=== PATIENT | male | born 1955 | race Caucasian/White ===

== ENCOUNTER → 2023-03-27 09:21 | Outpatient (REF) | payer OTHER, SELFPAY | LOC: RAD 09:21 | PROVIDERS: ATTENDING PHYSICIAN Podiatrist Foot Surgery; FAMILY PHYSICIAN Nurse Practitioner Primary Care | DX: L97.522 Non-pressure chronic ulcer of other part of left foot with fat layer exposed (principal) | CPT/HCPCS: 78315; A9503 ==

== ENCOUNTER → 2023-03-29 07:19 | Outpatient (REF) | payer OTHER, SELFPAY | LOC: RAD 07:19 | PROVIDERS: ATTENDING PHYSICIAN Podiatrist Foot Surgery; FAMILY PHYSICIAN Nurse Practitioner Primary Care | DX: M86.9 Osteomyelitis, unspecified (principal) | CPT/HCPCS: 78803; A9569 ==

== ENCOUNTER → 2023-05-10 08:50 | Outpatient (REF) | payer OTHER, SELFPAY | LOC: RAD 08:50 | PROVIDERS: ATTENDING PHYSICIAN Nurse Practitioner Primary Care | DX: N18.2 Chronic kidney disease, stage 2 (mild) (principal); R80.9 Proteinuria, unspecified; C61 Malignant neoplasm of prostate | CPT/HCPCS: 76770 ==

== ENCOUNTER → 2023-05-14 12:23 | Outpatient (REF) | payer OTHER, SELFPAY | LOC: RAD 12:23 | PROVIDERS: ATTENDING PHYSICIAN Surgery Vascular Surgery; FAMILY PHYSICIAN Nurse Practitioner Primary Care | DX: I73.9 Peripheral vascular disease, unspecified (principal) | CPT/HCPCS: 93922; 93925 ==

== ENCOUNTER 2023-05-21 12:19 | Inpatient (IN) | payer OTHER, SELFPAY ==
[2023-05-21] VITALS (9 sets, daily range): BP systolic 124–189; BP diastolic 59–96; BMI 45.6; BMI 45.7
--- NOTE | 2023-05-21 10:10 | ED.GENMED ---
History of Present Illness
General
Chief Complaint: Skin Problem
Source: patient
Time Seen by Provider: 05/21/23 09:49
Travel History
Have you had any contact with someone who has COVID-19?: No
Do you have any symptoms of coronavirus? Fever > 100 degrees, chills, cough, shortness of breath, sore throat, loss of taste or smell, muscle aches, or headache?: No
History of Present Illness
History of Present Illness:
This patient is a 67-year-old male presents emergency department with complaints of nonhealing left second toe wound. He was referred here by his quality nurse, Dr. Winston Caba, and is scheduled for surgery later today. Patient states that he is
currently taking oral antibiotics, Augmentin, and his quality nurse was concerned that he is not improving. Patient does not appreciate pain. He denies fever, chills, chest pain, dyspnea, abdominal pain, or other complaints.
Past History
Past History
ED Past Medical History: HTN, Hypercholesterolemia, Psychiatric (Anxiety Depression, ), Other (Herniated disc) and Other (depression Hearing impaired on the left, history of arthritis, fractures, and gout ,chronic bronchitis)
ED Past Surgical History: Orthopedic (Left 2 and 3 finger reattached Right ankle tendon repair, Left wrist repair, left great toe amputation), Tonsilectomy and Other (Patient has had surgery for the left second and third fingers reattachment, and
right ankle tendon repair)
Social History
Tobacco: Former smoker
Alcohol: None
Drug: None
Personal:
Living: alone
Employment: Employed
Family History
Family History: Hypertension; Negative Diabetes
Phy Exam
Physical Exam
Physical Exam:
GENERAL: Alert , in no apparent distress
EYE: pupils equal and reactive
NECK: Supple, no significant adenopathy.
ENT: o/p clr, mmm.
CARDIAC: Regular rate and rhythm .
LUNGS: Clear breath sounds bilaterally, no acute respiratory distress, no wheezes/rales/rhonchi
ABDOMEN: Soft, without focal tenderness, no r/g, no cvat
NEUROLOGICAL: Alert and oriented, no focal neuro deficits
SKIN: Warm and dry, skin intact.
MUSCULOSKELETAL: s/p great toe amputation L foot, 2nd toe with open wound just prox to nailbed centrally, sl foul smelling, no active drainage. Mild surrounding erythema, no crepitus/fluctuance. warm
PSYCH: Normal and appropriate interaction.
Course
Orders/Labs/Results
Orders:
Orders
05/21/23 10:04
Cardiac Monitoring- Treatment ONCE
Foot, Left 3 View [CR Foot - Left Min 3 Views] Urgent
Comment:
Reason For Exam: 2nd toe infection
05/21/23 10:12
Complete Blood Count/With Diff Urgent
Comprehensive Metabolic Panel Urgent
Lactic Acid Q4H
Comment: CANCEL 2nd LACTIC ACID IF 1st LACTIC ACID IS LESS THAN 2
TSH Reflex To Free T4 Urgent
Comment: TSH REFLEX ADDED ON BY FLOOR 11;54AM 05-21-23
Blood Culture Q30M
KELLY Source: Blood/Venous
Specimen Description:
Blood Culture Q30M
KELLY Source: Blood/Venous
Specimen Description:
05/21/23 10:17
Piperacillin/Tazo 4.5 Gram [Zosyn] 4.5 gram in 100 ml IV NOW
Vancomycin 1 Gram/200 ml [Vancocin] 1 gram in 200 ml IV NOW
05/21/23 11:50
Admit/Transfer Patient As Directed
Co-Sign Provider:
Level of Care: Inpatient admission
Assign to:: Telemetry
Physician / Group: Marisol Venegas
Diagnosis: L 2nd toe infection/wound/osteomyelitis
Reason for Telemetry: Arrhythmia
Other Reason for Telemetry: bradycardia on monitor
Date to Stop Telemetry: 05/24/23
Time to Stop Telemetry: 11:00
Reason for Hospitalization: L 2nd toe infection/wound/osteomyelitis- IV abx and surgery
Expected length of stay greater than two midnights?: Yes
ELOS- Estimated Length of Stay in days: 3
I certify the patient meets the requirements for IP care: Yes
05/21/23 11:54
Code Status As Directed
Resuscitation Status: Full Code
05/21/23 11:54
Add On- LAB Routine
Tests Added?: TSH reflex T4
EKG [Electrocardiogram (*1)] Urgent
Reason for Study: PreOp
05/21/23 12:00
INFECTIOUS DISEASE CONSULT Routine
Consulting Provider: Kevin Euceda
Was physician already notified: Yes
PODIATRY CONSULT Routine
Consulting Provider: Winston Caba
Was physician already notified: Yes
05/21/23 12:23
Type+Screen Routine
Troponin I Routine
05/21/23 13:02
0.9% Sodium Chloride 1000 ml [Nss] 1,000 ml IV 70 mls/hr
Acetaminophen [Tylenol] 650 mg PO Q4HPRN PRN
Morphine Sulfate 2 mg IV Q4HPRN PRN
Ondansetron Injectable [Zofran] 4 mg IV Q6HPRN PRN
Oxycodone [Roxicodone] 5 mg PO Q4HPRN PRN
05/21/23 13:02
WOUND/OSTOMY CONSULT Routine
Reason for Consult: Left 2nd toe wound, cellulitis
Activity As Directed
Activity Level: As Tolerated
Sequential Compression Device [Pneumatic Compression Sleeves] As Directed
Type: Knee high
Vital Signs As Directed
Frequency: Per unit guidelines
DX Deep Vein Thrombosis Video Routine
05/22/23 08:00
Allopurinol [Zyloprim] 300 mg PO DAILY
Finasteride [Proscar] 5 mg PO DAILY
Lisinopril [Zestril] 20 mg PO DAILY
Pravastatin Sodium [Pravachol] 80 mg PO DAILY
05/24/23 11:00
DC Protocol for Telemetry ONCE
Abnormal Lab Results
05/21/23
10:12
RBC 4.54 L 10^6/uL
(4.70-6.10)
MCHC 32.6 L g/dL
(33.0-37.0)
RDW 14.6 H %
(11.5-14.5)
Absolute Monos (auto) 0.7 H 10^3/uL
(0.1-0.6)
BUN 33 H mg/dl
(9-20)
05/21/23 10:12
05/21/23 10:12
Vital Signs
Initial and Last Documented VS:
Initial Vital Signs
Temp Pulse Resp BP Pulse Ox
97.7 F 54 18 189/86 99
05/21/23 09:43 05/21/23 09:43 05/21/23 09:43 05/21/23 09:43 05/21/23 09:43
Last Documented Vital Signs
Temp Pulse Resp BP Pulse Ox
97.4 F 49 20 150/82 99
05/21/23 18:00 05/21/23 18:00 05/21/23 18:00 05/21/23 18:00 05/21/23 18:00
*Critical Care Note
Total Time (30-74mins, 75-104mins- exclusive of procedures): Not Applicable
Update Note
Update Note:
Patient presents to the Emergency Department with toe wound
Number and Complexity of Problems Addressed at the Encounter
� Chronic conditions affecting care:
� Acute Exacerbation and/or Progression of Chronic Illness:
� Differential Diagnosis includes: But not limited to necrotic wound, gangrene, abscess, osteomyelitis, etc.
Amount and/or Complexity of Data to be Reviewed and Analyzed
� I performed an independent evaluation of and my interpretation is:
EKG:read by me, sinus montserrat, no acute ischemia
CT:
Xrays:Prior amputation of the phalanges of the left great toe with likely chronic deformity of the head of the first metatarsal.
Some mild cortical irregularity about the left second metatarsal phalangeal joint which although may be chronic, cannot exclude minor bony destructive process, particularly involving the base of the proximal phalanx, such as osteomyelitis.
Mild deformity of the head of the third metatarsal with some periosteal thickening, possibly chronic.
Laboratory Studies:generally unremarkable
Other:
� Review of other/old records reveals: Patient was seen in the hospital for wounds in the past, extensive wound care history with center
� Clinical information was obtained by an independent historian: Patient called into emergency department by his quality nurse :, Text attached Laura Knight. Called in by podiatry (Dr.Daniel Caba). Admit to hospitalist service.
dehisced toe wound/down to bone...scheduled for amp today at 4...
needs xray, abx and to be medically cleared for surgery
� Prescriptions/Medications Considered but not given:
� Further testing considered but not performed:
Risk of Complications and/or Morbidity or Mortality of Patient Management
� Social determinants of health affecting care:
� Discussion with other providers (PCP, Hospitalists, Consultants, etc): [place] text sent to on-call hospitalist, Dr. Finch, for admission. I will update : The patient is here.
� Escalation of care including admission/observation vs risk of discharge considered: Dr caba aware pt here, requests zosyn for abx (I therefore cancelled vanco as well). Pt stable, not septic.
ED Attending Note
-
Portions of this chart may have been created with voice recognition software.� Occasional wrong word or��sound alike� substitutions may have occurred due to the inherent limitations of voice recognition software.
Discharge Plan
Departure
Patient Disposition: Admit
Date of Disposition: 05/21/23
Time of Disposition: 10:30
Admit to: Med/Surg
Presentation/result/management discussed w/ accepting MD/DO: Hospitalist
Condition: Fair
Discharge Problem:
Infection of toe
Interventions
Interventions:
*Risk Screen - Suicide Last Done: 05/21/23 10:11
*General Assessment Last Done: 05/21/23 10:11
*Neglect/Abuse Screening Last Done: 05/21/23 10:11
*ED COVID-19 Vaccine History Last Done: 05/21/23 09:45
*Nursing Disposition Last Done: 05/21/23 12:55
ED-Skin Assessment Last Done: 05/21/23 10:26
Discharge Date and Time
Discharge Date/Time: 05/21/23 12:56
[2023-05-21 10:33] LABS: % Basophils 0.4 % (0-2); % Eosinophils 3.8 % (0-6); % Immature Granulocytes 0.4 % (0-0.5); % Lymphocytes 27.1 % (20.5-51.1); % Monocytes 8.6 % (1.7-9.3); % Neutrophils 59.7 % (42.2-75.2); Absolute Eosinophils 0.3 10^3/uL (0-0.7); Absolute Lymphocytes 2.1 10^3/uL (1.2-3.4); Absolute Monocytes 0.7 10^3/uL (0.1-0.6); Absolute Neutrophils 4.7 10^3/uL (1.4-6.5); Hematocrit 41.7 % (39.0-52.0); Hemoglobin 13.6 g/dL (13.0-18.0); Mean Corp Hgb Conc. 32.6 g/dL (33.0-37.0); Mean Corpuscular Volume 91.9 fL (80.0-94.0); Mean Platelet Volume 10.2 fL (7.4-10.4); Nucleated Red Blood Cells % 0 % (-); Platelet Count 221 10^3/uL (130-400); Red Blood Cell Count 4.54 10^6/uL (4.70-6.10); Red Cell Dist. Width 14.6 % (11.5-14.5); White Blood Cell Count 7.9 10^3/uL (4.8-10.8)
[2023-05-21] MEDS: ZOSYN 100 IV (10:35)
[2023-05-21 10:45] LABS: ALT (SGPT) 19 U/L (0-50); AST (SGOT) 25 U/L (17-59); Albumin 4.2 g/dl (3.5-5.0); Alkaline Phosphatase 57 U/L (38-126); Blood Urea Nitrogen 33 mg/dl (9-20); Calcium 9.7 mg/dl (8.4-10.2); Carbon Dioxide 27 mmol/L (22-30); Chloride 106 mmol/L (98-107); Estimated Creatinine Clearance 95 ml/min; Glucose 99 mg/dl (70-99); Potassium 4.8 mmol/L (3.5-5.1); Sodium 138 mmol/L (135-145); Total Bilirubin 0.4 mg/dl (0.2-1.3); Total Protein 7.1 g/dl (6.3-8.2); eGFR > 60.00
[2023-05-21 10:48] LABS: Lactic Acid 0.8 mmol/L (0.7-2.0)
--- NOTE | 2023-05-21 11:36 | HPS.HSE ---
Family Physician
-
Family Physician: Marielos Hogue
Chief Complaint
-
nonhealing 2nd L toe wound
History of Present Illness
67 y/o M hx of HTN, HLD, Anxiety/depression, presents from podiatry office (Dr. Madan Caba) for direct admission for nonhealing L 2nd toe wound. Patient reports being on Augmentin for a few days for cellulitis without improvement. Now noticing more
redness and drainage. No fever/chills, no SOB, CP, no edema, no GI complaints.
In ER, Xray suggestive of osteo, patient admitted with surgery planned this afternoon.
Medical History
Past Medical History
Past Medical History: Reports Other (HTN, HLD, Anxiety/depression,)
Past Surgical History: Reports Tonsilectomy and Other (L great toe amp)
Social History
Tobacco: Former Smoker
Alcohol: None
Drug: None
Personal:
Living: Alone
Employment: Employed
Family History
Family History: Not pertinent
Allergies / Home Medications
Allergies reflects when Allergies were last updated in [place] [place].
Home Medications with original date entered in [place]
Allergy/Medication List:
Allergies
Allergy/AdvReac Type Severity Reaction Status Date / Time
zinc [Zinc] Allergy Rash-topical Verified 05/21/23 09:47
zinc
Home Medications
cholecalciferol (vitamin D3) 50 mcg (2,000 unit) tablet 2,000 units PO DAILY Supplement 06/21/21
finasteride 5 mg tablet 5 mg PO DAILY prostate issue 06/21/21
pravastatin 40 mg tablet 80 mg PO DAILY High cholesterol 06/21/21
allopurinol 300 mg tablet 300 mg PO DAILY 05/11/22
lisinopril 20 mg tablet 20 mg PO DAILY 05/11/22
amoxicillin 875 mg-potassium clavulanate 125 mg tablet 1 tab PO BID 05/21/23
coQ10 (ubiquinol) 100 mg capsule 100 mg PO DAILY 05/21/23
polyethylene glycol 3350 17 gram oral powder packet (Miralax) 17 g PO DAILYPRN PRN constipation 05/21/23
Review of Systems
-
History Source: Patient
A 12 point ROS was completed and negative except as noted: Yes
Physical Exam
Vital Signs
Vital Signs
Temp Pulse Resp BP Pulse Ox
97.7 F 54 14 150/77 100
05/21/23 09:43 05/21/23 10:38 05/21/23 10:38 05/21/23 10:38 05/21/23 10:38
Physical Exam
General: Well Developed and Well Nourished
HEENT: NormoCephalic and Anicteric
Respiratory: Clear; No Wheezes or Rales
Cardiac: S1/S2 and Bradycardia
GI: Soft and Non Tender
Musculoskeletal: Other (L 2nd toe wound, with surrounding cellulitis, drainage)
Neuro: AO x 3
Psych: Calm
Laboratory Results
-
05/21/23 10:12
05/21/23 10:12
Laboratory Results
Lactic Acid 0.8 mmol/L (0.7-2.0) 05/21/23 10:12
Total Bilirubin 0.4 mg/dl (0.2-1.3) 05/21/23 10:12
AST 25 U/L (17-59) 05/21/23 10:12
ALT 19 U/L (0-50) 05/21/23 10:12
Alkaline Phosphatase 57 U/L (38-126) 05/21/23 10:12
Data Reviewed
-
Lab Data: Labs Reviewed by me
Impression/Plan
-
Assessment:
Left 2nd toe infection with POA wound
- x-ray: Prior amputation of the phalanges of the left great toe with likely chronic deformity of the head of the first metatarsal. Some mild cortical irregularity about the left second metatarsal phalangeal joint which although may be chronic,
cannot exclude minor bony destructive process, particularly involving the base of the proximal phalanx, such as osteomyelitis. Mild deformity of the head of the third metatarsal with some periosteal thickening, possibly chronic.
- empiric Abx given in ER, hold further for now to allow operative cultures
- ID consulted
- Podiatry consulted
- pre-op EKG with sinus montserrat, no ischemic changes. Can proceed to OR with low to mod risk, no additional testing required.
Sinus bradycardia, patient was asleep prior to encounter
- asymptomatic
- tele
- avoid AV ella blocking agents
- EKG sinus montserrat
- trop neg
- TSH 1.14
Essential HTN
- resume KEREN tomorrow
Enlarged prostate - Finasteride
Gout hx - continue Allopurinol
HLD - statin
Anxiety/Depression
DVT ppx: SCDs pre-op
Code: Full
[2023-05-21 12:55] LABS: Troponin I < 0.012 ng/ml
[2023-05-21 13:06] LABS: TSH Reflex To Free T4 1.14 uIU/ml (0.47-4.68)
[2023-05-21] MEDS: NSS 1000 IV (13:09)
--- NOTE | 2023-05-21 13:58 | CON.ID ---
Consultation
-
Date/Time Consultation Requested: 05/21/2023 1200
Date/Time Consultation Performed: 05/21/2023 1336
Requesting Provider: Dr. Venegas
Performing Provider: Dr. Euceda
Reason for Consultation: Left second toe infection
Chief Complaint / Past History
History of Present Illness
Yang Knight is a 67-year-old man being evaluated at the request of Dr. Venegas regarding left second toe infection. History is obtained from chart review, along with patient interview.
The patient denies any significant past medical history of lower extremity neuropathy, and previous amputation of the left hallux. (2021). He notes that he had difficulty healing at that time, although ultimately the area did heal. Since that
point he has been dealing with a second toe hammertoe deformity and he reports that he underwent surgery approximately 3 weeks ago. Following that he has had a difficult time healing the area and has been followed closely by Podiatry. In follow-up
this week the area remains open despite several days of antibiotic therapy, and the patient has been sent in by Podiatry for exploration in the OR, and possible distal phalanx amputation.
At this time the patient denies any erythema extending up the leg. He denies any fevers or chills. He denies significant drainage from the area.
Past History
Additional Past Medical History:
HTN
Dyslipidemia
Gout
Depression
Hx prostate cancer
Additional Past Surgical History:
Tonsils
Left second and third finger surgery (reattachment)
Right ankle tendon surgery
Left hallux amp
Wrist surgery
Allergy History:
zinc [Zinc] Allergy (Verified 05/21/23 09:47)
Rash-topical zinc
Medications Reviewed: Yes
Current Antibiotics:
None
Social History
Tobacco: Non-Smoker
Alcohol: None
Drug: None
Personal: Single
Living: With Family
Employment: Retired
Review of Systems
Vital Signs
Temp Pulse Resp BP Pulse Ox
98.3 F 52 18 164/85 98
05/21/23 13:02 05/21/23 13:02 05/21/23 13:02 05/21/23 13:02 05/21/23 13:02
Physical Exam
Physical Exam
Constitutional: No Acute Distress, Comfortable and Non-toxic
Head: Normocephalic
Eyes: Pupils Equal, Pupils Round, No Conjunctival Hemorrhage and Sclera Anicteric
Oral: No Thrush and No Ulcers
Cardiovascular: Regular Rate and S1/S2; Negative S3/S4
Pulmonary: Clear; Negative Wheezes, Rales or Rhonchi
Gastrointestinal: Soft, Non Tender, Non Distended and Normal Bowel Sounds
Extremities: Venous Insufficiency (Bilateral lower extremities); Negative Edema
Wound: Other (Left second toe with 1 cm wound and exposed underlying fat tissue)
Neurological: Awake and Alert
Psychological: Calm
Lab / Diagnostic Study Results
05/21/23 10:12
05/21/23 10:12
Abs Immat Gran (auto) 0.0 10^3/uL (0-0.05) 05/21/23 10:12
Absolute Neuts (auto) 4.7 10^3/uL (1.4-6.5) 05/21/23 10:12
Absolute Lymphs (auto) 2.1 10^3/uL (1.2-3.4) 05/21/23 10:12
Absolute Monos (auto) 0.7 10^3/uL (0.1-0.6) H 05/21/23 10:12
Absolute Basos (auto) 0.0 10^3/uL (0-0.2) 05/21/23 10:12
Immature Gran % 0.4 % (0-0.5) 05/21/23 10:12
Neutrophils % 59.7 % (42.2-75.2) 05/21/23 10:12
Lymphocytes % 27.1 % (20.5-51.1) 05/21/23 10:12
Monocytes % 8.6 % (1.7-9.3) 05/21/23 10:12
Eosinophils % 3.8 % (0-6) 05/21/23 10:12
Basophils % 0.4 % (0-2) 05/21/23 10:12
Lactic Acid Cancelled 05/21/23 14:15
Microbiology Results
Micro:
05/21/23 10:12 Blood Culture - Pending
Blood/Venous
05/21/23 10:12 Blood Culture - Pending
Blood/Venous
Imaging:
05/21/2023 X-ray left foot: Prior amputation of the phalanges of the left great toe with likely chronic deformity of the head of the first metatarsal. Some mild cortical irregularity about the left second metatarsal phalangeal joint which although
may be chronic, cannot exclude minor bony destructive process, particularly involving the base of the proximal phalanx, such as osteomyelitis. Mild deformity of the head of the third metatarsal with some periosteal thickening, possibly chronic.
Please see full dictation for additional detail. Film personally viewed.
Assessment / Plan
Left second toe wound
Suspected osteomyelitis left second digit
HTN
Dyslipidemia
Gout
Depression
Hx prostate cancer
Recommendations:
Recommendations:
Agree with holding antibiotics for the present in anticipation of of tentative surgery later today.
Would check wound cultures, and send bone for pathology to assess for osteomyelitis. Would also send a proximal margin to assess for osteomyelitis.
Begin Zosyn following surgery
Await further culture data to guide antimicrobial selection.
--- NOTE | 2023-05-21 15:44 | WOUNDNOTE ---
L 2ND TOE
--- NOTE | 2023-05-21 15:45 | WOUNDNOTE ---
WON RN note: Patient admitted with L 2ND toe infection.
See H&P for complete history.
PMH: HTN, CKD2, gout, prostate ca, pre diabetes, chronic back pain with epidural injections, ex-smoker, obesity, IQUGMIUT, L 2nd and 3rd finger reattached s/p trauma, L great toe fracture, L great toe amputation 2021.
Wound Location and type/assessment: Patient known to service, last seen 06/22/21. Since then L great toe amputated site healed. Now presents with 2nd toe non healing full thickness wound, osteomyelitis suspected. Reviewed I&D note. Patient states he
saw his Business Process Manager Dr. Caba a few days ago, sent patient to hospital. Plan is for for OR later today states patient. Both heels are intact, no other skin issues at this time.
Appetite: NPO
Pressure redistribution devices in place: [employer] Accumax. Patient moves self in bed.
Plan: Will follow peripherally as needed post OR, Podiatry managing.
--- NOTE | 2023-05-21 17:06 | SUR.OPER ---
Patient admitted into room 406-01 from ER. Vital signs stable. Reviewed use of call glover, television and bed controls. Verbalizes understanding of teaching. Patient scheduled for OR today for potential toe amputation. Report given to OR nurse.
Patient understands his plan of care. Patient was NPO since 4am. NSS at 70 mls/hour started via right peripheral IV. Knee high pneumatic compression stockings placed on both legs. Underwear removed. Cholorhexadine wipes done and patient urinated
prior to transport. Consent to be obtained in the OR.
--- NOTE | 2023-05-21 17:40 | W.PN.UPDATE ---
Update Note
Progress Note Update
pt seen in RR
no pain
cft intact
dressing cdi
a./p s/p partial amp 2nd toe left foot---stable
no SOI, wound closed, bone sent to path, bone and wound cx taken'
low suspicion of osteo at 2nd mpj, probable old trauma. Pt never had a wound near mpj
pt also had recent bone scans with no osteo
Will see tomorrow and anticipate d/c tomorrow late afternoon
[2023-05-21] MEDS: ZOSYN 50 IV (19:40)
--- NOTE | 2023-05-21 19:41 | PTCARENOTE ---
Patient returned from OR. Second great toe on left foot amputated. Post-op dressing CDI. Patient denies pain. Vital sign stable. Foot elevated on pillows.
[2023-05-22] MEDS: ZOSYN 50 IV ×3 (01:28→14:10)
[2023-05-22 03:44] VITALS: BP 134/70
--- NOTE | 2023-05-22 07:35 | W.PN.POD ---
Today's Communication
Today's Communication
Stable, awaiting cx
awaiting PT
PWB left heel in sx shoe/walker
Assessment / Plan
-
a.p partial amp 2nd toe left---stable, no acute SOi
will watch wound healing
abx per ID, will d/w ID
Subjective
Chief Complaint
pt seen s/p partial amp 2nd toe left foot
no pain
drssing with slight blood
cft intact
Subjective
vacs intact
derm sutures intact, foot warm, cft intact
no edema or erythema
no cellulitis
wound cx rare wbc, rare gram pos cocci
bone no wbc, no organisms as of yet
Objective
Temp Pulse Resp BP Pulse Ox
97.9 F 57 20 134/70 93
05/22/23 03:44 05/22/23 03:44 05/22/23 03:44 05/22/23 03:44 05/22/23 03:44
05/21/23 10:12
05/21/23 10:12
Vital Signs and Lab results were reviewed.
[2023-05-22 07:55] VITALS: BP 156/77
[2023-05-22 08:50] VITALS: BP 141/79; PULSE 67
[2023-05-22 08:57] LABS: Hematocrit 41.5 % (39.0-52.0); Hemoglobin 13.7 g/dL (13.0-18.0); Mean Platelet Volume 10.2 fL (7.4-10.4); Platelet Count 223 10^3/uL (130-400); Red Blood Cell Count 4.56 10^6/uL (4.70-6.10); Red Cell Dist. Width 14.4 % (11.5-14.5); White Blood Cell Count 9.9 10^3/uL (4.8-10.8)
[2023-05-22] MEDS: PRAVACHOL 80 MG PO (09:00)
[2023-05-22] MEDS: ZESTRIL 20 MG PO (09:00)
[2023-05-22] MEDS: FLUSH (NSS) 1 FLUSH IV ×2 (09:00→14:10)
[2023-05-22] MEDS: ZYLOPRIM 300 MG PO (09:00)
[2023-05-22] MEDS: PROSCAR 5 MG PO (09:01)
[2023-05-22 09:15] LABS: Blood Urea Nitrogen 27 mg/dl (9-20); Calcium 9.8 mg/dl (8.4-10.2); Carbon Dioxide 27 mmol/L (22-30); Chloride 106 mmol/L (98-107); Estimated Creatinine Clearance 87 ml/min; Glucose 116 mg/dl (70-99); Potassium 5.1 mmol/L (3.5-5.1); Sodium 139 mmol/L (135-145); eGFR > 60.00
[2023-05-22 11:55] VITALS: BP 131/71
--- NOTE | 2023-05-22 14:10 | W.PN.HOSP.TC ---
Addendum entered and electronically signed by Marisol Venegas MD 05/22/23 14:48:
Morbid obesity
Original Note:
Today's Communication/Plan
-
dc VN
Assessment / Plan
Assessment / Plan
Assessment:
Left 2nd toe infection with POA wound
- x-ray: Prior amputation of the phalanges of the left great toe with likely chronic deformity of the head of the first metatarsal. Some mild cortical irregularity about the left second metatarsal phalangeal joint which although may be chronic,
cannot exclude minor bony destructive process, particularly involving the base of the proximal phalanx, such as osteomyelitis. Mild deformity of the head of the third metatarsal with some periosteal thickening, possibly chronic.
- s/p partial amp 2nd toe left
- partial WB L heel with shoe/walker
- follow cultures; on Zosyn
- follow ID recs, possible DC today
Sinus bradycardia, patient was asleep prior to encounter
- asymptomatic
- tele
- avoid AV ella blocking agents
- EKG sinus montserrat
- trop neg
- TSH 1.14
Essential HTN
- continue KEREN
Enlarged prostate - continue Finasteride
Gout hx - continue Allopurinol
HLD - statin
Anxiety/Depression
DVT ppx: SCDs pre-op
Code: Full
More than 30 minutes spent in discharge including
Final examination of the patient
Summarizing hospital stay
Instructions for continuing care to all relevant caregivers
Preparation of discharge records, prescriptions, and referral forms
Total time spent (in minutes): 42
Anticipated Discharge: Within 24 hours
Subjective/Interval History
-
Date of Service: May 22, 2023
denies pain
Objective Data
-
Labs:
Laboratory Results
05/22/23 05/22/23
08:29 08:30
WBC 9.9
Hgb 13.7
Hct 41.5
Plt Count 223
Sodium 139
Potassium 5.1
Chloride 106
Carbon Dioxide 27
BUN 27 H
Creatinine 1.2
Glucose 116 H
Calcium 9.8
Vital Signs:
Vital Signs
Temp Pulse Resp BP Pulse Ox
98.5 F 56 18 131/71 99
05/22/23 11:55 05/22/23 11:55 05/22/23 11:55 05/22/23 11:55 05/22/23 11:55
I&O
05/21/23 05/22/23 05/23/23
06:59 06:59 06:59
Intake Total 1620 / 1620
Output Total 1275 / 1275
Balance 345 / 345
Physical Exam
-
General: No Apparent Distress
HEENT: Normocephalic and Atraumatic
Respiratory: Negative Wheezes or Rales
Cardiac: Regular Rhythm and S1/S2
GI: Soft and Nontender
Genito-urinary: No Costovertebral Tender
Neuro: AO x 3
Psych: Calm
Data Reviewed
-
Total Time Spent with Patient (in minutes): 42
Labs: Labs Reviewed by me
--- NOTE | 2023-05-22 14:12 | PN.CDI ---
CDI
- -
CDI:
Physician Documentation Request
Admit Date: 05/21/23 12:19
Dear Doctor Theo,
Patient admitted with nonhealing 2nd L toe wound.
Please review the following and provide your response in the progress notes.
Clinical Indicators:
Height: 5' 11'
Weight: 327 lb 3 oz
BMI: 45.6
Please provide an associated diagnosis related to the abnormal BMI, such as:
Morbid obesity
Obesity
BMI is not significant
Other
BMI > or = to 40
Overweight
Obesity:
Due to excess calories
Drug induced
Due to other cause
Severe or morbid obesity:
With alveolar hypoventilation (Obesity hypoventilation syndrome)
Without alveolar hypoventilation
Use of terms such as suspected, likely, concern for, or probable (associated with a specific diagnosis that is being evaluated, monitored, or treated as if it exists) are acceptable and can be coded in the inpatient setting, when documented at the
time of discharge.
Thank you,
Sheri OLIVARES,RN,CCDS
CDI Specialist
Available via tiger text
Please use your independent medical judgment in providing your response.
--- NOTE | 2023-05-22 14:24 | W.PN.ID1 ---
Date of Service
Date of Service: May 22, 2023
Today's Communication
Transition to oral keflex and doxy for 7 days.
Assessment / Plan
Left second toe wound
Suspected osteomyelitis left second digit
- S/P amp. Appears to be surgical cure
HTN
Dyslipidemia
Gout
Depression
Hx prostate cancer
Recommendations:
Recommendations:
Plain film suggests surgical cure given amputation level.
Patient reports that he would like to be discharged. At this point in time low likelihood of ongoing retained osteo-.
Transition to Keflex 500 mg p.o. 4 times daily and doxycycline 100 mg twice daily, both for 7 days.
Patient has been counseled that all pathology and culture data is not yet returned, and that there is a low possibility that there is retained osteomyelitis.
����������������������������������������������������������
Chief Complaint
-: Other (Osteomyelitis)
Subjective / Review of Systems
Review of Systems: No Fever and No Chills
Vital Signs / Physical Exam
Vital Signs
Vital Signs
Temp Pulse Resp BP Pulse Ox
98.5 F 56 18 131/71 99
05/22/23 11:55 05/22/23 11:55 05/22/23 11:55 05/22/23 11:55 05/22/23 11:55
Physical Exam
Constitutional: No Acute Distress, Comfortable and Non-toxic
Eyes: No Conjunctival Hemorrhage and Sclera Anicteric
Pulmonary: Non Labored
Gastrointestinal: Soft and Non Distended
Skin: Negative Rash or Jaundice
Wound: Other (Left foot dressed in [place] wrap.)
Neurological: Awake and Alert
Psychological: Calm
Objective Data
Lab Data
Lab Results
05/22/23 08:30
05/22/23 08:29
Estimated Creat Clear 87 ml/min 05/22/23 08:29
Lactic Acid Cancelled 05/21/23 14:15
Total Bilirubin 0.4 mg/dl (0.2-1.3) 05/21/23 10:12
AST 25 U/L (17-59) 05/21/23 10:12
ALT 19 U/L (0-50) 05/21/23 10:12
Alkaline Phosphatase 57 U/L (38-126) 05/21/23 10:12
Most recent labs reviewed.
Micro Results:
05/21/23 17:00 Anaerobic Culture - Preliminary
Foot - Left Culture pending. Anaerobic cultures are examined after 3
days incubation. Additional information to follow.
05/21/23 17:00 Wound Culture - Preliminary
Foot - Left Gram Stain - Preliminary
05/21/23 17:00 Tissue Culture - Preliminary
Toe Gram Stain - Preliminary
05/21/23 10:12 Blood Culture - Preliminary
Blood/Venous No Growth in 24 hours- Final report to follow
05/21/23 10:12 Blood Culture - Preliminary
Blood/Venous No Growth in 24 hours- Final report to follow
05/21/23 17:00 Tissue Culture - Pending
Toe Gram Stain - Pending
Imaging:
05/21/2023 x-ray left foot (postop): Amputation of the second toe at the mid diaphysis of the proximal phalanx. Stable prior amputation of the first toe at the head of the metatarsal.
05/21/2023 X-ray left foot: Prior amputation of the phalanges of the left great toe with likely chronic deformity of the head of the first metatarsal. Some mild cortical irregularity about the left second metatarsal phalangeal joint which although
may be chronic, cannot exclude minor bony destructive process, particularly involving the base of the proximal phalanx, such as osteomyelitis. Mild deformity of the head of the third metatarsal with some periosteal thickening, possibly chronic.
Please see full dictation for additional detail. Film personally viewed.
Care Review
Plan reviewed with: Physician (Hospitalist)
--- NOTE | 2023-05-22 14:28 | W.DS.TRANS ---
DC Summary - [employer]
-
Discharge Instructions:
Discharge Diagnosis/Procedures Left 2nd toe infection s/p partial toe amp 2nd
toe 05/20
Diet Regular
Activity Other activity
Additional Activity partial weight bearing as tolerated
Other Services VN
Instructions:
Stand-Alone Forms:
Changes to Home Medications: No
Discharge Medications:
DC Medications w/original date entered in [employer]
cholecalciferol (vitamin D3) 50 mcg (2,000 unit) tablet 2,000 units PO DAILY Supplement 06/21/21
finasteride 5 mg tablet 5 mg PO DAILY prostate issue 06/21/21
pravastatin 40 mg tablet 80 mg PO DAILY High cholesterol 06/21/21
allopurinol 300 mg tablet 300 mg PO DAILY gout 05/11/22
lisinopril 20 mg tablet 20 mg PO DAILY blood pressure 05/11/22
coQ10 (ubiquinol) 100 mg capsule 100 mg PO DAILY supplement 05/21/23
polyethylene glycol 3350 17 gram oral powder packet (Miralax) 17 g PO DAILYPRN PRN constipation 05/21/23
acetaminophen 325 mg tablet 650 mg PO Q4HPRN PRN mild pain/CHAVEZ/temp> 100.4F #100 tabs 05/22/23
cephalexin 500 mg capsule 500 mg PO QID #28 caps 05/22/23
doxycycline hyclate 100 mg capsule (Vibramycin) 100 mg PO BID #14 caps 05/22/23
Home Medication Changes
Pending Results: No
Total time spent discharging patient (in min): 42
[2023-05-22 15:14] VITALS: BP 138/71
--- NOTE | 2023-05-22 15:30 | CM ---
CM following re: d/c planning
Chart reviewed
CM met patient at bedside; IA completed
Pt states he resides alone in a 1[address] with no BRISE[place]
[employer]UE [employer]OR patient reports independence at baseline
Pt has no previous SNF hx, however has had [facility] in the recent past, & has the following DME: 2 walkers, 2 omar chairs, 2 sets of crutches, a raised toilet seat, & handrails/grab bars for the bathroom
Pt confirms prescription coverage and rx's are filled at [facility] on [address] and maintenance medications are filled through [facility]
Pt PCP- [facility] & the patient sees ROBINA Luna
Pt has been cleared medically for d/c and home care was recommended post d/c for SN secondary to left 2nd toe wound
Pt has declined and CM communicated the same to the patient's hospitalist
Per ID patient will continue on oral antibiotic as ordered and f/u outpatient as directed
Pt states his daughter lives very close to his residence and will transport him home at time of d/c
IMM also reviewed and copy provided
PLAN; d/c home no needs (pt declined home care)
== END 2023-05-22 16:48 | disposition home or self-care (01) | DRG 504 ==
LOC: 4 EAST ACU 12:19
PROVIDERS: ADMITTING PHYSICIAN Internal Medicine; CONSULT PHYSICIAN Internal Medicine Infectious Disease; CONSULT PHYSICIAN Podiatrist Foot Surgery; EMERGENCY PHYSICIAN Emergency Medicine; FAMILY PHYSICIAN Nurse Practitioner Primary Care
PROC: 0Y6S0Z1 Detachment at Left 2nd Toe, High, Open Approach (ICD-10-PCS; 2023-05-22)
DX: M86.172 Other acute osteomyelitis, left ankle and foot (principal); Z68.42 Body mass index [BMI] 45.0-49.9, adult; L08.9 Local infection of the skin and subcutaneous tissue, unspecified; E78.00 Pure hypercholesterolemia, unspecified; R00.1 Bradycardia, unspecified; L97.529 Non-pressure chronic ulcer of other part of left foot with unspecified severity; F32.A Depression, unspecified; F41.9 Anxiety disorder, unspecified; I10 Essential (primary) hypertension; J42 Unspecified chronic bronchitis; M10.9 Gout, unspecified; E66.01 Morbid (severe) obesity due to excess calories; N40.0 Benign prostatic hyperplasia without lower urinary tract symptoms; H91.90 Unspecified hearing loss, unspecified ear; M19.90 Unspecified osteoarthritis, unspecified site; L03.032 Cellulitis of left toe; Z88.8 Allergy status to other drugs, medicaments and biological substances; Z87.891 Personal history of nicotine dependence; Z85.46 Personal history of malignant neoplasm of prostate
CPT/HCPCS: 88305; 88311; 73630; 80048; 80053; 83605; 84443; 84484; 85025; 85027; 86850; 86900; 86901; 87040; 87070; 87075; 87147; 87176; 87186; 87205; 93005; 96365; 97162; 99285

== ENCOUNTER → 2023-12-05 08:59 | Outpatient (REF) | payer OTHER, SELFPAY | LOC: HWRCS 08:59 | PROVIDERS: ATTENDING PHYSICIAN Nurse Practitioner Primary Care | DX: I11.9 Hypertensive heart disease without heart failure (principal) | CPT/HCPCS: 93306 ==

== ENCOUNTER → 2024-10-16 07:12 | Outpatient (REF) | payer OTHER, SELFPAY | LOC: HWRAD 07:12 | PROVIDERS: ATTENDING PHYSICIAN Nurse Practitioner Primary Care | DX: R59.1 Generalized enlarged lymph nodes (principal) | CPT/HCPCS: 76536 ==

== ENCOUNTER 2025-02-09 09:21 | Emergency (ER) | payer OTHER, SELFPAY ==
[2025-02-09 09:27] VITALS: BP 130/77
[2025-02-09 10:01] VITALS: BP 104/66
--- NOTE | 2025-02-09 10:02 | ED.GENMED ---
History of Present Illness
General
Chief Complaint: Chest Pain
Time Seen by Provider: 02/09/25 09:39
History of Present Illness
History of Present Illness:
69-year-old male presents to the emergency department for evaluation of pleuritic chest and back pain for the past 3 days. No reported trauma. Pain does not necessarily worsen with exertion or with body position changes only with deep breathing.
Does note a recent viral URI within the past month. Denies any shortness of breath, nausea, vomit, or diarrhea. Not on any blood thinners.
Past History
Past History
ED Past Medical History: HTN, Hypercholesterolemia, Psychiatric (Anxiety Depression, ), Other (Herniated disc) and Other (depression Hearing impaired on the left, history of arthritis, fractures, and gout ,chronic bronchitis)
ED Past Surgical History: Orthopedic (Left 2 and 3 finger reattached Right ankle tendon repair, Left wrist repair, left great toe amputation), Tonsilectomy and Other (Patient has had surgery for the left second and third fingers reattachment, and
right ankle tendon repair)
Social History
Tobacco: Former smoker
Alcohol: None
Drug: None
Personal:
Living: alone
Employment: Employed
Family History
Family History: Hypertension; Negative Diabetes
Review of Systems
Review of Systems
Allergies reviewed?: Yes
All Other Systems: ROS reviewed and negative except as documented in HPI and ROS
Phy Exam
Physical Exam
Physical Exam:
GEN: Well appearing, NAD, WDWN
HEENT: Oral mucosa moist, no scleral icterus
Cardiac: Regular rate and rhythm, no murmur
Lung: No respiratory distress, no tachypnea, lungs clear to auscultation, no reproducible chest wall pain
MSK: No gross deformity or injuries
Skin: Good color, no pallor or jaundice, no rashes
Neuro: AO x3, moves all extremities freely
Psych: Calm, cooperative
Scores
Heart Score for Chest Pain Patients
STEMI patient?: Not applicable
Course
Orders/Labs/Results
Orders:
Orders
02/09/25 09:22
Electrocardiogram (*1) Urgent
Reason for Study: Chest Pain
EKG- Treatment ONCE
02/09/25 09:53
CXR2 [CR Chest - 2 Views ] Urgent
Comment:
Reason For Exam: chest pain
02/09/25 10:11
CMP [Comprehensive Metabolic Panel] Urgent
Complete Blood Count/With Diff Urgent
D-Dimer Urgent
Troponin I Urgent
02/09/25 10:52
CT Chest PE Study Urgent
Comment:
Reason For Exam: elevated D dimer chest pain
Abnormal Lab Results
02/09/25
10:11
WBC 14.5 H 10^3/uL
(4.8-10.8)
RBC 4.47 L 10^6/uL
(4.70-6.10)
MCV 96.0 H fL
(80.0-94.0)
MCHC 31.0 L g/dL
(33.0-37.0)
Abs Immat Gran (auto) 0.1 H 10^3/uL
(0-0.05)
Absolute Neuts (auto) 12.4 H 10^3/uL
(1.4-6.5)
Absolute Lymphs (auto) 1.1 L 10^3/uL
(1.2-3.4)
Absolute Monos (auto) 0.9 H 10^3/uL
(0.1-0.6)
Neutrophils % 85.3 H %
(42.2-75.2)
Lymphocytes % 7.6 L %
(20.5-51.1)
D-Dimer 2.23 H ug/mlFEU
(0.00-0.50)
BUN 29 H mg/dl
(9-20)
Glucose 112 H mg/dl
(70-99)
Alkaline Phosphatase 37 L U/L
(38-126)
02/09/25 10:11
02/09/25 10:11
Vital Signs
Initial and Last Documented VS:
Initial Vital Signs
Temp Pulse Resp BP Pulse Ox
97.3 F 73 20 130/77 99
02/09/25 09:27 02/09/25 09:27 02/09/25 09:27 02/09/25 09:27 02/09/25 09:27
Last Documented Vital Signs
Temp Pulse Resp BP Pulse Ox
97.3 F 84 21 121/76 98
02/09/25 09:27 02/09/25 13:15 02/09/25 13:15 02/09/25 12:00 02/09/25 13:15
MDM/Problems Addressed
MDM/Problems Addressed:
Patient's workup reveals a trace pericardial effusion and small left pleural effusion. Given the lack of positional pain I have less concern for pericarditis. Rather this may be a pleurisy in the setting of a left pleural effusion related to
recent URI symptoms. Will cover with NSAIDs and recommend primary care follow-up in 1 to 2 weeks
Comment
Comment:
EKG independently interpreted by me shows normal sinus rhythm with first-degree AV block, general T wave flattening but no obvious ST changes concerning for ischemia
*Pulse Oximetry
SaO2: 99
Oxygen Mode of Delivery: Room air
Patient hypoxic: no
*Critical Care Note
Total Time (30-74mins, 75-104mins- exclusive of procedures): Not Applicable
ED Attending Note
-
Portions of this chart may have been created with voice recognition software.� Occasional wrong word or��sound alike� substitutions may have occurred due to the inherent limitations of voice recognition software.
Discharge Plan
Departure
Patient Disposition: Home (Routine Discharge)
Date of Disposition: 02/09/25
Time of Disposition: 13:22
Patient with high blood pressure during this ER visit?: No
Discharge Problem:
Pleural effusion
Instructions: Pleural effusion (DC), How to use an incentive spirometer
Prescriptions:
New
celecoxib 200 mg capsule
200 mg PO BID Qty: 20 0RF
No Action
finasteride 5 MG tablet
5 mg PO DAILY
pravastatin 40 MG tablet
80 mg PO DAILY
cholecalciferol (vitamin D3) 2,000 UNITS tablet
2,000 units PO DAILY
lisinopril 20 mg Tablet
20 mg PO DAILY
allopurinol 300 mg Tablet
300 mg PO DAILY
polyethylene glycol 3350 [Miralax] 17 gram Powder In Packet
17 g PO DAILYPRN PRN (Reason: constipation)
coQ10 (ubiquinol) 100 mg Capsule
100 mg PO DAILY
acetaminophen 325 mg Tablet
650 mg PO Q4HPRN PRN (Reason: mild pain/CHAVEZ/temp> 100.4F) Qty: 100 0RF
doxycycline hyclate [Vibramycin] 100 mg capsule
100 mg PO BID Qty: 14 0RF
cephalexin 500 mg capsule
500 mg PO QID Qty: 28 0RF
Referrals:
Marielos Hogue CRNP [Family Provider, Internal Medicine]
Activity Restrictions/Additional Instructions:
Follow-up with your primary doctor in the next 1 to 2 weeks for repeat chest x-ray
Use your incentive spirometer 10 times per day for the next week
Interventions
Interventions:
*General Assessment Last Done: 02/09/25 10:03
*ED COVID-19 Vaccine History Last Done: 02/09/25 10:03
*ED Influenza Vaccine History Last Done: 02/09/25 10:03
[facility] Fall Risk Assessment Tool Last Done: 02/09/25 10:19
*Nursing Disposition Last Done: 02/09/25 13:50
ED- Cardiac Assessment Last Done: 02/09/25 10:03
Discharge Date and Time
Discharge Date/Time: 02/09/25 13:51
Print Language: [place]
[2025-02-09 10:19] VITALS: BMI 37.7
[2025-02-09 10:20] LABS: Hematocrit 42.9 % (39.0-52.0); Hemoglobin 13.3 g/dL (13.0-18.0); Mean Corp Hgb Conc. 31.0 g/dL (33.0-37.0); Mean Corpuscular Volume 96.0 fL (80.0-94.0); Nucleated Red Blood Cells % 0 % (-); Platelet Count 295 10^3/uL (130-400); Red Cell Dist. Width 13.9 % (11.5-14.5)
--- NOTE | 2025-02-09 10:20 | EDRN ---
Received patient on stretcher with c/o chest pain for several days. Patient stated that the pain is mostly when he takes a deep breath. Denies SOB.
[2025-02-09 10:33] LABS: D-Dimer 2.23 ug/mlFEU (0.00-0.50)
[2025-02-09 10:38] LABS: ALT (SGPT) 36 U/L (0-50); AST (SGOT) 31 U/L (17-59); Albumin 4.0 g/dl (3.5-5.0); Alkaline Phosphatase 37 U/L (38-126); Blood Urea Nitrogen 29 mg/dl (9-20); Calcium 9.6 mg/dl (8.4-10.2); Carbon Dioxide 25 mmol/L (22-30); Chloride 106 mmol/L (98-107); Estimated Creatinine Clearance 83 ml/min; Glucose 112 mg/dl (70-99); Potassium 5.1 mmol/L (3.5-5.1); Sodium 138 mmol/L (135-145); Total Protein 7.2 g/dl (6.3-8.2); eGFR > 60.00
[2025-02-09 10:43] VITALS: BP 119/72
[2025-02-09 10:45] LABS: Troponin I 0.012 ng/ml
[2025-02-09 11:00] VITALS: BP 125/71
[2025-02-09 11:26] VITALS: BP 135/82
[2025-02-09 12:00] VITALS: BP 121/76
== END 2025-02-09 13:51 | disposition home or self-care (01) ==
LOC: EMR 09:21
PROVIDERS: Physician Assistant; EMERGENCY PHYSICIAN Emergency Medicine; FAMILY PHYSICIAN Nurse Practitioner Primary Care
DX: J90 Pleural effusion, not elsewhere classified (principal); I10 Essential (primary) hypertension; E78.00 Pure hypercholesterolemia, unspecified; J42 Unspecified chronic bronchitis; M19.90 Unspecified osteoarthritis, unspecified site; Z82.49 Family history of ischemic heart disease and other diseases of the circulatory system; Z87.891 Personal history of nicotine dependence; Z96.632 Presence of left artificial wrist joint
CPT/HCPCS: 99284; 71046; 71275; 80053; 84484; 85025; 85379; 93005; Q9967